=== PATIENT | male | born 1960 | race Caucasian/White ===

== ENCOUNTER 2023-12-20 05:09 | Observation (INO) ==
--- NOTE | 2023-11-28 09:05 | PAT Medication Instructions ---
Medication Instructions Date of Service November 28, 2023 Home Medications ibuprofen 200 mg tablet 200 - 400 mg PO Q6H PRN ASK your surgeon for instructions ibuprofen 200 mg tablet 200 - 400 mg PO Q6H PRN Other Notes NOTHING TO EAT OR DRINK AFTER MIDNIGHT. If you have any questions please call us at [phone] or [phone] or [phone] or [phone]
--- NOTE | 2023-12-01 09:48 | Anesthesiology Consultation ---
Date of Service December 01, 2023 Assessment & Plan (1) Encounter for pre-operative examination: - Infectious disease screening: Per assessment on 12/01/23: No known infectious disease contacts or current infectious disease symptoms. No noted recent Covid positive test result. - Outpatient joint assessment: Pt currently scheduled for inpatient pathway. If surgeon requests review for outpatient joint pathway, patient is an acceptable candidate for outpatient joint program from anesthesia standpoint pending surgeon's office assessment that patient is motivated, has good support and completes [facility] preop requirements. - Patient acceptable risk for surgery pending surgeon-ordered PCP preop evaluation ([facility], appt 12/12). Chart Review Chart Review: Patient seen in Pre Admission Testing Teaching & Discussion Pre-Anesthesia Teaching/Discussion Notes: Instructed NPO after midnight before surgery,except medications with 15 cc of water. Medication instructions provided according to the PAT guidelines. History Surgery Operation Date: 12/20/23 11:55 Proposed Procedures p Left Total Knee Arthroplasty - Abrma Elaine MD Height/Weight Height: 5 ft 10 in Weight: 86.4 kg Allergies Allergy/AdvReac Type Severity Reaction Status Date / Time lisinopril AdvReac Unknown Cough Verified 12/01/23 09:48 Medications Home Medications Medication Instructions Recorded Confirmed Last Taken ibuprofen 200 mg tablet 200 - 400 mg PO Q6H PRN Pain 11/27/23 11/27/23 Unknown Past Medical History Medical History Arthritis of multiple sites HTN (hypertension) Exercise / Class Metabolic Activity II 4-5 Yardwork/Stairs/Walk up hill Past Family History Family History Other No family history of adverse response to anesthesia Past Surgical History Surgical History History of intestinal surgery after , 1976 Hx of appendectomy Past Anesthesia History No Hx of Anesthesia Complications and No Family Hx of Anesthesia Complications History of PONV No Hx of PONV and No Hx of Motion Sickness Social History Smoking Status: Former smoker Do You Dip or Chew Tobacco: Yes (Daily- advised none DOS) Smoking End Date: Quit cigs approximately 20 years ago Hx Alcohol Use: Yes Alcohol type: beer alcohol intake frequency: a few times a month Hx Substance Use: No substance use type: does not use Review of Systems Patient denies chest pain, shortness of breath, dyspnea on exertion, fever, chills, cough, wheezing, palpitations. Physical Exam Vital Signs BP 136/90 P 70 TEMP 98.2 SP02 99%RA RESP 18 Physical Full cervical extension range of motion. Full TMJ range of motion. TMD 3.5 finger breaths Mallampati Score 3 Dentition: several missing teeth (has upper partial) Lungs: clear throughout to auscultation Cardiac: regular rate and rhythm, no murmurs noted Spine: normal Carotid arteries: negative bruit Extremities: no LE edema Lab Results Anesthesia Preop Results Results Anesthesia Widget: WBC 5.89 K/ul (4.8-10.8) 12/01/23 Hgb 14.1 g/dl (14.0-18.0) 12/01/23 Hct 41.3 % (42.0-52.0) L 12/01/23 Plt 319 K/uL (130-400) 12/01/23 Na 134 mmol/L (136-145) L 12/01/23 K 4.0 mmol/L (3.5-5.1) 12/01/23 Cl 100 mmol/L (98-107) 12/01/23 CO2 28 mmol/L (21-32) 12/01/23 BUN 23 mg/dl (6-23) 12/01/23 Creat 0.90 mg/dl (0.6-1.4) 12/01/23 Glucose Level 98 mg/dl (70-99(Fasting)) 12/01/23 PT 11.2 Seconds (9.0-12.0) 12/01/23 PTT 29 Seconds (21-31) 12/01/23 INR 1.0 (0.9-1.1) 12/01/23 Urine Color Yellow 12/01/23 Urine Appearance Clear (Clear) 12/01/23 Urine pH 5.5 (4.5-7.5) 12/01/23 Urine Specific [place] 1.016 (1.000-1.030) 12/01/23 Urine Protein Negative (Negative) 12/01/23 Urine Glucose (UA) Negative (Negative) 12/01/23 Urine Ketones Negative (Negative) 12/01/23 Urine Blood Negative (Negative) 12/01/23 Urine Nitrite Negative (Negative) 12/01/23 Urine Bilirubin Negative (Negative) 12/01/23 Urine Urobilinogen Negative (Negative) 12/01/23 Urine Leukocyte Esterase Negative (Negative) 12/01/23 Blood Type O Positive 12/01/23 Antibody Screen NEGATIVE 12/01/23 Testing Electrocardiogram Date: 12/01/23 NSR at 75bpm. "Normal ECG" Chest X-Ray Date: 12/01/23 FINDINGS: Cardiomediastinal and hilar silhouettes are within normal limits. Hyperinflation with diaphragmatic flattening. There is no pneumothorax, pleural effusion or overt pulmonary edema. Healed chronic left-sided rib fracture deformities. IMPRESSION: No acute process of the chest.
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
[2023-12-20] MEDS: LR 500ML BOLUS, THEN 15ML/HR IV SCH (05:50)
[2023-12-20] MEDS: LR 60ML/HR IV SCH (05:54)
[2023-12-20] MEDS: METOCLOPRAMIDE HCL 10 MG TABLET PO SCH (05:54)
[2023-12-20] MEDS: CeleBREX 200 MG CAP PO SCH ×2 (05:54→20:28)
[2023-12-20] MEDS: GABAPENTIN 600 MG DOSE PO SCH (05:54)
[2023-12-20] MEDS: ACETAMINOPHEN 500 MG TAB PO SCH ×2 (05:55→14:18)
[2023-12-20] MEDS: dexAMETHasone**PF** 10 MG/ML VIAL IV SCH (05:55)
[2023-12-20] MEDS: FAMOTIDINE 20 MG TAB PO SCH (05:55)
[2023-12-20] MEDS ORDERED: BUPIVACAINE 0.5 % 5 MG/1 ML PF 10ML VIAL ONE (06:10)
[2023-12-20] MEDS ORDERED: BUPIVACAINE 0.25% PF 30 ML VIAL ONE (06:10)
[2023-12-20] MEDS ORDERED: MIDAZOLAM HCL 1 MG/ML 2ML VIAL ONE (06:52)
[2023-12-20] MEDS ORDERED: fentaNYL citrate PF 100 MCG/2 ML VIAL ONE (06:52)
[2023-12-20] MEDS ORDERED: PROPOFOL IV EMULSION 10 MG/ML 20 ML VIAL IV ONE ×3 (06:55→09:54)
[2023-12-20] MEDS ORDERED: ONDANSETRON INJ 2 MG/ML 2 ML VIAL ONE (07:01)
[2023-12-20] MEDS: TRANEXAMIC ACID 1,000 MG **IV Pre-op IV SCH (07:11)
--- NOTE | 2023-12-20 07:11 | History & Physical Bridge Note ---
Date of Service December 20, 2023 History & Physical Bridge Note I have examined the patient, reviewed the History & Physical and in the interval since the performance of the History & Physical I have noted the following changes of clinical significance: no changes noted
[2023-12-20] MEDS: ceFAZolin 2000MG 2,000 MG/15 ML SYR IV SCH ×2 (07:23→17:54)
[2023-12-20] MEDS ORDERED: ATROPINE SULFATE 0.1 MG/ML 10ML SYR IV PRN (07:27)
[2023-12-20] MEDS ORDERED: fentaNYL citrate PF 100 MCG/2 ML VIAL IV PRN (07:27)
[2023-12-20] MEDS ORDERED: ONDANSETRON INJ 2 MG/ML 2 ML VIAL IV PRN ×2 (07:27→11:33)
[2023-12-20] MEDS ORDERED: ePHEDrine sulfate 50 MG/ML AMP IV PRN (07:27)
[2023-12-20] MEDS ORDERED: GLYCOPYRROLATE 0.2 MG/ML VIAL ONE (08:01)
[2023-12-20] MEDS ORDERED: PHENYLEPHRINE HCL 10 MG/ML VIAL ONE (08:06)
[2023-12-20] MEDS ORDERED: ePHEDrine sulfate 50 MG/ML AMP ONE (08:06)
[2023-12-20] MEDS: ORTHO JOINT ANESTHETIC ONE (08:08)
[2023-12-20] MEDS: ROPIV 0.5% 246mg, Ketorolac 30mg, EPINEPHrine 0.5mg in NSS INFIL SCH (09:24)
[2023-12-20] MEDS: TRANEXAMIC ACID 1,000 MG **IV Intra-op IV SCH (09:25)
--- NOTE | 2023-12-20 09:49 | Operative Report ---
Post Operative Report Pre & Post Diagnosis Operation Date: 12/20/23 07:15 Pre-Op Diagnosis: Left Knee Osteoarthritis with bone loss medial compartment Post-Op Diagnosis: Left Knee Osteoarthritis with bone loss medial compartment I identified the patient and participated in the time-out.: Yes Procedure Operation Date: 12/20/23 07:15 Actual Procedures p Left Total Knee Arthroplasty(Left), difficult primary with medial augment and revision tibial stem, lateral release, viviana and Acticoat superficial wound VAC application. Increased difficulty due to bone loss.- Abram Elaine MD Surgeon Abram Elaine MD Track Repair Person Sloan JONES Estimated Blood Loss 5 Findings Consistent with Post-Op Diagnosis Specimens Bone cuts Drains 2 Hemovac Anesthesia Type MAC Spinal Regional Complications none Disposition Disposition: Recovery Room Indications 63-year-old male with chronic left knee osteoarthritis with severe bone loss medial compartment. He has a marked varus knee with bone loss medial and posterior medial tibia and some bone loss medial femoral condyle. Description of Procedure Patient taken to the operating room the size under spinal MAC regional block anesthesia. Patient was placed supine on the operating table. A pneumatic tourniquet was placed about the left upper thigh. The left lower extremity was prepped and draped in sterile fashion. Knee exam demonstrated 10 through 125 degrees range of motion with mild pseudolaxity consistent with joint space loss and laxity lateral collateral ligament with significant varus alignment to the knee.. The leg was elevated exsanguinated with an Esmarch bandage and pneumatic tourniquet was raised to 325 millimeters of mercury. Skin incised sharply in longitudinal fashion. Subcutaneous flaps elevated. Incision was made through the medial retinaculum extending up in the mid third of the quadriceps tendon and down to the medial tibial tubercle. Intra-articular findings demonstrated severe osteoarthritis mainly in the medial compartment with bone loss of the tibia posterior medially and some femoral condyle bone loss. The exposed bone extending onto the lateral femoral condyle and tibial spines. ACL was torn. There was a chronic medial meniscus tear and anterior horn lateral meniscus degenerative tear. There are posterior medial osteophytes.. The persona Veto Biomet posterior stabilized total knee arthroplasty system was used. To expose the knee the infrapatellar fat pad was resected. The meniscal remnants and posterior cruciate ligament were resected. The anterior fat pad over the femur in the area of the location of the anterior flange of the femoral component was resected. The small lateral synovial bands were released. The femur was exposed. An intramedullary drill hole was made into the canal. A guide marquis was placed. Distal femoral cutting guide was adjusted to resect a 5 degree valgus cut with +2 millimeters additional cut from standard cut on the distal femur resected. The knee was extended and a subperiosteal peel lateral release was performed around the patella. Patella width was measured and width was repro duced using a freehand cut technique and a 35 symmetrical patella component. The 3 drill holes were made and the excess lateral facet was beveled off to prevent any impingement. Attention was taken back to the femur which was exposed with retractors and the femoral sizing guide was pinned in position. The drill holes were placed in 3 of external rotation to match the epicondylar axis. The femur sized for a 11 component. The 4-in-1 cutting block was placed and then the anterior posterior and chamfer cuts are made. The tibia was then subluxed. Intramedullary drill hole was made into the tibial canal. Reamers were used up to a size 13 diameter. These were used for the 135 mm stem. The cutting guide was adjusted and made +5 cut medially to account for the bone loss and then standard cut laterally. Tibia was sized and a size G tibia with +3 offset chosen at the 5 o'clock position. The orientation was marked. The tilt reamer was used. Proximal metaphyseal reamer was used on the trial +13 stem with a +3 offset. The broach for the fins was used. Trial was assembled and had a good fit. A lamina gizzard puller was used and the flexion extension gaps were balanced. Minor medial posterior medial releases were required. All posterior osteophytes removed. All meniscal remnants were resected. The 11 PS posterior stabilized femoral trial was inserted. The saw for the notch cut was used. The collet was placed. Trial tibial inserts were placed and size 10 CPS gave balanced ligaments through flexion and extension. Patella tracking was assessed. The patella tracked with some mild lateral patellar tilt so I did do a limited lateral release leaving the synovium intact and this corrected the patella tracking to central. The trial components were then removed and the orthomix anesthetic cocktail was injected per protocol. The knee was then copiously irrigated with pulsatile lavage saline solution. Final components were then cemented with Refobacin cement. Metaphyseal area of the tibia was cemented and the splined stem was noncemented .Xperience irrigation placed over metal compoments prior to polyethylene insertion. Final components were persona posterior stabilized left 11 standard femoral component, G tibia with a 13 mm +3 offset 135 mm length splined stem at the 5 o'clock position. 10 mm CPS tibial polyethylene and 35 mm symmetrical polyethylene patella. After the cement cured further pulsatile lavage irrigation was then performed with Xperience and 2 Hemovac drains were brought out laterally. The quadriceps tendon and medial retinaculum were closed with figure of 8 #1 Vicryl sutures. The knee was taken through full range of motion and the repair was secure. Knee range of motion was 0 through 135 degrees. The subcutaneous tissues were closed with 2-0 Vicryl sutures. Skin was closed with surgical blair. A viviana and Acticoat superficial wound VAC was applied. The patient tolerated the procedure well .Sloan JONES was my physician psychiatric assistant who participated as family law legal assistant and was involved in all aspects of the procedure including patient positioning prepping and draping,leg positioning ,soft tissue retraction and instrument management and participated in the closing and application of superficial wound VAC and will participate in postoperative care of the patient. There was increased level difficulty with difficult primary revision stem required on the tibia adding 30 minutes to the procedure. The patient tolerated the procedure well. I attest to the content of the Intraoperative Record and any orders documented therein. Any exceptions are noted below.
--- NOTE | 2023-12-20 11:19 | Anesthesiology Progress Note ---
Date of Service December 20, 2023 Anesthesia Post Procedure Vital Signs Vital Signs: Temp Pulse Pulse Resp BP Pulse Ox O2 Del Method 12/20/23 11:00 36.7 C 86 19 139/88 93 Room Air 12/20/23 10:50 96 H 23 109/80 93 Room Air 12/20/23 10:40 90 17 109/73 96 Room Air 12/20/23 10:30 101 H 18 111/75 95 Room Air 12/20/23 10:21 36.6 C 115 H 17 100/64 95 Room Air 12/20/23 05:35 36.9 C 69 18 146/94 H 99 Room Air Transfer of Care Handoff Completed per policy Notes Mental Status: alert / awake / arousable Patient Amnestic to Procedure: Yes Nausea / Vomiting: adequately controlled Pain: adequately controlled Airway Patency, RR, SpO2: stable & adequate BP & HR: stable & adequate Hydration State: stable & adequate Neuraxial Anesthesia: was administered and sensory block is resolving Anesthetic Complications: no major complications apparent and Pt Satisfied with anesthetic care
--- NOTE | 2023-12-20 11:24 | XRay Report ---
XR knee LT 1 or 2V routine CLINICAL HISTORY: Surgical Post Op TECHNIQUE: 2 views of the left knee were obtained. Comparison: None available at the time of this dictation. FINDINGS: Patient is status post total knee arthroplasty with expected postsurgical changes including soft tiss ue swelling and subcutaneous emphysema. No periarticular lucency or hardware fracture is seen. IMPRESSION: Expected postoperative appearance status post placement of total knee arthroplasty. ACT 112: Negative or not required by law. Electronically signed by: Helder Pelaez M.D. 12/20/2023 11:23 AM
[2023-12-20] MEDS ORDERED: METOCLOPRAMIDE HCL INJ 5 MG/ML 2 ML VIAL IV PRN (11:33)
[2023-12-20] MEDS ORDERED: bisacodyL 10 MG SUPP PR PRN (11:33)
[2023-12-20] MEDS ORDERED: HYDROmorphone INJ 0.5 MG/0.5 ML SYR IV PRN (11:33)
[2023-12-20] MEDS ORDERED: NALOXONE HCL 0.4 MG/1 ML VIAL/CARP IV PRN (11:33)
[2023-12-20] MEDS ORDERED: MAGNESIUM HYDROXIDE SUSP 30 ML UDC PO PRN (11:33)
[2023-12-20] MEDS: SODIUM CHLORIDE 0.9% 1,000 ML IV SCH (13:09)
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
[2023-12-20] MEDS: SENNA 8.6 MG TAB PO SCH (20:29)
[2023-12-20] MEDS: oxyCODONE HCL IR 5 MG TAB (IMMEDIATE RELEASE) PO PRN (20:30)
[2023-12-20] MEDS: ASPIRIN 81 MG ECTAB PO SCH (20:30)
[2023-12-20] MEDS: DOCUSATE SODIUM 100 MG CAP PO SCH (20:31)
[2023-12-21 06:24] LABS: Hematocrit (blood only) 29.1 % (42.0-52.0); Hemoglobin 9.9 g/dl (14.0-18.0); Mean Corpuscular Hemoglobin 31.7 pg (25.0-34.0); Mean Corpuscular Volume 93.3 fL (80.0-100.0); Mean Platelet Volume 9.1 fL (9.4-12.4); Platelet Count 252 K/uL (130-400); RDW Coefficient of Variation 12.7 % (11.5-14.5); Red Blood Count 3.12 M/uL (4.70-6.10); White Blood Count 8.53 K/ul (4.8-10.8)
[2023-12-21 06:48] LABS: BUN Creatinine Ratio 19.4 (10-20); Calcium 8.1 mg/dl (8.6-10.3); Creatinine Clr Calc Pharmacy 78.6 ml/min; Est GFR (African American) 94.1 ml/min; Est GFR (Non-African American) 81.2 ml/min
--- NOTE | 2023-12-21 07:17 | Orthopedic Progress Note ---
Date of Service December 21, 2023 Assessment & Plan (1) Primary osteoarthritis of left knee: Plan: Postop day #1 left total knee -PT/OT -Pain management as written -DVT prophylaxis: SCDs, teds, aspirin 81 mg twice daily -A.m. labs: Hemoglobin dropped to 9.9. Acute blood loss anemia due to surgical loss versus dilutional. Patient is asymptomatic -Patient is feeling well this morning. Hoping to go home. Will see how he progresses with therapy. Likely discharge home today with drain in place and have him come to the office tomorrow for removal. Admission and Anticipated Discharge Date Admission Date: December 20, 2023 Subjective Postop day 1 left total knee. Doing well this morning. No current complaints. Denies chest pain, shortness of breath, nausea/vomiting/diarrhea, headaches or dizziness Review of Systems Review of Systems: All systems reviewed & are unremarkable except as noted in Subjective Physical Exam Physical Exam: Left knee: Dressings clean, dry, intact. Toes are mobile with good dorsiflexion. No calf tenderness. Straight leg raise is intact. Distally neurovascular status and sensation is grossly intact. Results & Data Vital Signs (Past 12 Hours) Vital Signs Temp Pulse Resp BP Pulse Ox O2 Del Method 12/21/23 05:27 36.4 C L 66 16 123/72 98 Room Air 12/21/23 00:21 36.6 C 74 16 120/70 95 Room Air 12/20/23 19:19 36.7 C 108 H 16 135/85 96 Room Air Laboratory Results Lab Results 12/21/23 Range/Units 05:29 WBC 8.53 (4.8-10.8) K/ul RBC 3.12 L (4.70-6.10) M/uL Hgb 9.9 L (14.0-18.0) g/dl Hct 29.1 L (42.0-52.0) % MCV 93.3 (80.0-100.0) fL MCH 31.7 (25.0-34.0) pg MCHC 34.0 (32.0-36.0) g/dL RDW Std Deviation 43.0 (36.4-46.3) fL RDW Coeff of Cruz 12.7 (11.5-14.5) % Plt Count 252 (130-400) K/uL MPV 9.1 L (9.4-12.4) fL Sodium 135 L (136-145) mmol/L Potassium 4.0 (3.5-5.1) mmol/L Chloride 105 (98-107) mmol/L Carbon Dioxide 25 (21-32) mmol/L Anion Gap 5 (3-11) BUN 19 (6-23) mg/dl Creatinine 0.98 (0.6-1.4) mg/dl Est Cr Clr Drug Dosing 78.6 ml/min Est GFR ( Amer) 94.1 ml/min Est GFR (Non-Af Amer) 81.2 ml/min BUN/Creatinine Ratio 19.4 (10-20) Glucose 105 H (70-99(Fasting)) mg/dl Calcium 8.1 L (8.6-10.3) mg/dl
[2023-12-21] MEDS: MULTIVITAMIN TAB PO SCH (09:36)
--- NOTE | 2023-12-21 17:15 | Discharge Summary ---
Date of Service December 21, 2023 Admission HPI Per Admitting Provider Bob is a 63-year-old male with a past medical history of mild hypertension monitor as outpatient with normotension on assessment and most recently with normotension with no pharmacologic therapy, history of to use 1 can every 2 days who presented for left knee arthroplasty. We have been consulted for postop medication management. Bob reports he takes no medications other than intermittent ibuprofen for pain. No history of GI bleeding. Denies history of cardiac, renal, and pulmonary disease. Former smoker and currently uses chew 1 can every 2 days. Knows he should quit, somewhat reticent and notes he has difficulty to do so due to the habit. Does not wish for NRT at this time is willing to follow-up with his PCP for additional care, contemplative overall. No history of chest pain or angina. He reports that he did have an episode of lightheadedness and some slight dizziness after he was bent over and stood up suddenly, but did not pass out and had no focal neurologic symptoms and no chest pain or shortness of breath and this quickly passed after a couple of seconds.. No other episodes of syncope or dizziness. Medical History: Reviewed Medications: Reviewed Surgical History: Reviewed Family history: Reviewed Allergies: Reviewed Social History: Reviewed Code Status: Full Admission Exam Per Admitting Provider Constitutional: well developed and well nourished; no acute distress Eyes: PERRL, conjunctivae normal, anicteric sclerae ENMT: external ear and nose normal, oropharynx normal Neck: trachea midline, no thyromegaly Respiratory: normal respiratory effort, lungs clear to auscultation Cardiovascular: RRR, no murmur, no edema Musculoskeletal: Left knee: Significant varus alignment. Mild effusion. Tenderness medial joint line. Positive Asaf's. Positive valgus and varus stress test. Range of motion 0 to 130 degrees. Skin: no rashes, warm and dry Neurologic: patellar DTR's 2+ bilat, sensation intact Psychiatric: A+Ox3, euthymic affect Principal Diagnosis Left knee osteoarthritis Discharge Exam Left knee: Dressings clean, dry, intact. Toes are mobile with good dorsiflexion. No calf tenderness. Straight leg raise is intact. Distally neurovascular status and sensation is grossly intact. Discharge Data Allergies Allergy/AdvReac Type Severity Reaction Status Date / Time lisinopril AdvReac Unknown Cough Verified 12/20/23 05:36 Consultations 12/15/23 12:05 Consult Hospitalist Routine Procedures Performed Operation Date: 12/20/23 07:15 Actual Procedures p Left Total Knee Arthroplasty(Left) - Abram Elaine MD Ordered Studies 12/20/23 05:00 US - OR guided needle placemen Routine Hospital Course (1) Primary osteoarthritis of left knee: Postop day #1 left total knee -PT/OT -Pain management as written -DVT prophylaxis: SCDs, teds, aspirin 81 mg twice daily -A.m. labs: Hemoglobin dropped to 9.9. Acute blood loss anemia due to surgical loss versus dilutional. Patient is asymptomatic -Patient is feeling well this morning. Hoping to go home. Will see how he progresses with therapy. Likely discharge home today with drain in place and have him come to the office tomorrow for removal. Lab Results 12/21/23 Range/Units 05:29 WBC 8.53 (4.8-10.8) K/ul RBC 3.12 L (4.70-6.10) M/uL Hgb 9.9 L (14.0-18.0) g/dl Hct 29.1 L (42.0-52.0) % MCV 93.3 (80.0-100.0) fL MCH 31.7 (25.0-34.0) pg MCHC 34.0 (32.0-36.0) g/dL RDW Std Deviation 43.0 (36.4-46.3) fL RDW Coeff of Cruz 12.7 (11.5-14.5) % Plt Count 252 (130-400) K/uL MPV 9.1 L (9.4-12.4) fL Sodium 135 L (136-145) mmol/L Potassium 4.0 (3.5-5.1) mmol/L Chloride 105 (98-107) mmol/L Carbon Dioxide 25 (21-32) mmol/L Anion Gap 5 (3-11) BUN 19 (6-23) mg/dl Creatinine 0.98 (0.6-1.4) mg/dl Est Cr Clr Drug Dosing 78.6 ml/min Est GFR ( Amer) 94.1 ml/min Est GFR (Non-Af Amer) 81.2 ml/min BUN/Creatinine Ratio 19.4 (10-20) Glucose 105 H (70-99(Fasting)) mg/dl Calcium 8.1 L (8.6-10.3) mg/dl Total Time Total Time Spent Total Time Spent (In Minutes): 20 Discharge Plan Discharge Items Patient Disposition: Home - Self-Care Reason For Visit: Left Knee Osteoarthritis Discharge Diagnosis: Left knee osteoarthritis Activity: Per Instructions section Non-emergency contact: Surgeon Call non-emergency contact if: you have any medication questions, your pain is not controlled, your pain is concerning for you, you have a fever, your temperature is above 101, your wound has increased redness and your wound has increased drainage Follow-up/Referrals: Golden Lucero DO [Primary Care Provider] - 12/28/23 11:30 am Diet: Regular Addtl Attending Provider Instructions: ACTIVITY RECOMMENDATIONS: SELF CARE INSTRUCTIONS AFTER TOTAL KNEE REPLACEMENT A. You may need to continue a physical therapy program after discharge from the hospital. There are several options available to you. Your doctor will assist you in selecting the best one for you. 1. An out-patient facility 2 to 3 times a week for therapy or home therapy. 2. Continue working on all exercises taught to you in the hospital. Your goals should be to increase bending of your knee to 90 degrees and beyond and to fully straighten your knee. B. You may progress at your own pace from walking with a walker or crutches to a cane; then to no assistive devices. C. Make walking a part of your daily routine. Be up as much as comfortable with rest periods throughout the day. Rest with leg elevation is very important. Use the ice wrap frequently for the first 3-4 weeks. D. There are no restrictions on activities. You may ride in a car, shop, participate in respiratory tech and all social activities. E. Wear the long elastic stockings (LIZANDRO hose) 20 hours a day for 2 weeks after surgery. They can be removed several times a day for laundering and for a bath. F. You may shower, no tub baths until cleared by your doctor. SPECIAL CARE INSTRUCTIONS: VERY IMPORTANT TO READ AND REVIEW A. There are a few signs you need to watch for after you are home. Call [facility] if you notice any of the followin. Increased severe knee pain. Some pain is expected especially when you exercise. 2. Increased swelling in your leg or knee; pain or swelling of the calf muscle in either lower leg. 3. Any fluid drainage from the incision. 4. Shortness of breath or chest pain. B. Please call [facility] at if you have any concerns or questions about your operation or recovery. The doctor or his nurse will return your call promptly. C. You must take antibiotics before dental work, bladder, bowel or other surgery. Your doctor will provide you with a permanent care to carry describing this precaution. IMPORTANT: * REMEMBER TO TAKE ASPIRIN, 81 MG, TWICE DAILY FOR 4 WEEKS UNLESS OTHERWISE DIRECTED. THIS IS YOUR BLOOD THINNER. * HIGH RISK PATIENTS MAY BE PRESCRIBED A STRONGER BLOOD THINNER. THIS WILL BE PROVIDED AT DISCHARGE. * CALL IF INCREASED PAIN, REDNESS, DRAINAGE OR FEVER GREATER THAT 101. * WEAR LIZANDRO HOSE 20 HOURS PER DAY FOR 2 WEEKS. There is a large suction dressing covering your incision. This will help pull any excess drainage from the wound and allow your incision to heal properly. You may shower with this if you can keep the unit outside of the shower. If any bleeding or leakage is noted please call your doctor's office. This will remain on your incision for 7 days and then should be removed. This can be done yourself or by the home nursing staff if applicable. The entire unit is disposable once removed. Once removed, keep incision clean and dry. If redness or drainage is noted, please call your surgeon. IF INCISION IS LEAKING THROUGH DRESSING, CALL THE OFFICE . Will maintain hemovac on discharge and have you come into the office for removal tomorrow. We will call you to arrange a time. FOLLOW UP VISIT: If appointment is not already scheduled: Please call [facility] to make a follow-up appointment for 2 weeks after your surgery at . Stand-Alone Forms: My [employer], Smoking Cessation Medications and DC Order Prescriptions: New celecoxib [Celebrex] 200 mg Capsule 200 mg PO BID Qty: 60 0RF aspirin 81 mg Tablet,Delayed Release (Dr/Ec) 81 mg PO BID Qty: 60 0RF acetaminophen [Tylenol Extra Strength] 500 mg Tablet 1,000 mg PO Q8 Qty: 60 0RF oxycodone 5 mg Tablet 5 - 10 mg PO .Q4h-6h MDD 6 PRN (Reason: pain) Qty: 30 0RF Rx Instructions: Ongoing therapy, Dr. Elaine supervising. Date of surgery 12/20/2023. Discontinued ibuprofen 200 mg Tablet 200 - 400 mg PO Q6H PRN (Reason: Pain) Discharge Orders: Discharge Order (Routine); Ordered 12/21/23 Ordered By: Sloan Smalls Admission Data Admit Date/Time: 12/20/23 10:23 Attending Provider: Abram Elaine Admit Provider: Abram Elaine Primary Care Provider: Golden Lucero Other Providers: Golden Garcias Other Interventions: Discharge Summary Assessment (RN) Last Done: 12/21/23 09:46
== END 2023-12-21 10:38 | disposition home or self-care (01) ==
LOC: ASU 05:09 → PACUINP 05:09 → 3W 13:04